=== PATIENT | female | born 1980 | race Caucasian/White ===

== ENCOUNTER 2017-12-31 14:28 | Day surgery (SDC) | payer BC ==
[~2017-12-31] VITALS: Ht 180.3 cm; Wt 141.0 kg
[~2017-12-31 14:28] MED LIST: Colace PO; Coumadin,Jantoven PO; Dilaudid PO; FLOVENT DISKUS1 DIS2 IH; Feosol PO; LIDODERM 5% P1 PATCH TD; LYRICA50 MG PO; MIRENA52 MG IY; Motrin PO; NATALCARE RX1 TABLET PO; OTEZLA30 MG PO; SULFAZINE EC500 MG PO; Theragran PO; VICODIN HP 10-1 EACH PO; VITAMIN B-122000 MCG PO; Vicodin,Norco 5/325 PO; ZANAFLEX2 M1 PO
== END 2017-12-31 15:53 | disposition home or self-care (01) ==
LOC: PAIN 14:28 → SDC 15:00 → PAIN 15:00
DX: M51.16 Intervertebral disc disorders with radiculopathy, lumbar region (principal); M06.9 Rheumatoid arthritis, unspecified; E66.9 Obesity, unspecified; Z68.41 Body mass index [BMI] 40.0-44.9, adult
CPT/HCPCS: J1100; J2250

== ENCOUNTER 2018-01-28 13:26 | Day surgery (SDC) | payer BC ==
[~2018-01-28] VITALS: Ht 180.3 cm; Wt 139.7 kg
== END 2018-01-28 14:45 | disposition home or self-care (01) ==
LOC: PAIN 13:26 → SDC 14:00 → PAIN 14:00
DX: M47.26 Other spondylosis with radiculopathy, lumbar region (principal); M51.16 Intervertebral disc disorders with radiculopathy, lumbar region; Z88.5 Allergy status to narcotic agent; Z79.891 Long term (current) use of opiate analgesic
CPT/HCPCS: J1100; J2250